=== PATIENT | male | born 2005 | race Caucasian/White ===

== ENCOUNTER 2023-10-13 16:53 | Emergency (ER) | payer BC, SELFPAY ==
[2023-10-13 16:58] VITALS: BP 144/84; PULSE 63; RESP 18; TEMP 36.6; O2SAT 100
--- NOTE | 2023-10-13 17:29 | CRLHL7_ITS ---
For Patients: As a result of the Century Cures Act, medical imaging exams and procedure reports are released immediately into your electronic medical record. You may view this report before your referring provider. If you have questions, please contact your health care provider. INDICATIONS: Chest pain. Cough. TECHNIQUE: Chest 2 view. COMPARISON: None FINDINGS: No pneumothorax or pleural effusion. Lungs are clear. Cardiac and mediastinal contours are within normal limits. Upper abdomen and osseous structures as imaged show no acute abnormality. IMPRESSION: No evidence of acute cardiopulmonary disease. Dictated by Allen Reis MD @ 10/13/2023 7:12:38 PM (Electronically Signed)
--- NOTE | 2023-10-13 17:30 | ED_ITS ---
HPI - General Adult General Date Seen: 10/13/23 Chief complaint: Chest Pain Stated complaint: Chest pain 2 months Time Seen by Provider: 10/13/23 17:10 History of Present Illness HPI narrative: pleasant, generally health 18 yo M presents to ER with girlfriend today for evaluation of chest pain. Has been having intermittent left sided chest pain for about two months, but becoming more frequent for the past 2 weeks. Located on left anterior chest, about 2 inches inferior to his nipple. feels like a pinching. comes and goes several times an hour and lasts 4-5 seconds per episode. no other symptoms occur with the chest pain. No nausea, no palpitations, no SOB, no dizziness. no trigger for the episodes of pain. no relationship to exertion, postion, movement. No radiation to back, arm, abdomen, neck, jaw. No radiation. No N/V. he has had a cough for the past several days, with some runny nose and some sputum. no known fevers. Vapes but does not smoke. denies drugs or EtOH. No h/o heart or lung disease. No asthma. No known family history. No swelling of his legs or arms. No recent travel, surgery, immobilization. No medications. No allergies. Related Data Home Medications Medication Instructions Recorded Confirmed No Known Home Medications 10/13/23 10/13/23 Allergies Allergy/AdvReac Type Severity Reaction Status Date / Time No Known Drug Allergies Allergy Verified 10/13/23 17:02 [facility] Social History Smoking Status: Never smoker Do you use any of these nicotine containing products: None Second hand tobacco smoke exposure: No How often do you have a drink containing alcohol: never AUDIT-C Alcohol total score: 0 Non-prescribed substance use: denies use service: No Exam Narrative: Exam Narrative: Constitutional: Appears well-developed and well-nourished. Alert. Conversant. Non toxic. HENT: Head: Atraumatic. Nose: Nose normal. Mouth/Throat: Oral mucosa is clear and moist. no trismus. Pharynx normal. Tonsils symmetric. No tonsillar enlargement, erythema, or exudate. Eyes: Conjunctivae normal. EOM normal. Pupils equal, round, and reactive to light. No scleral icterus. Neck: Normal range of motion. Neck supple. No tracheal deviation present. no JVD Cardiovascular: Normal rate, regular rhythm. No gallop. No friction rub. No murmur heard. Symmetric radial and PT and DPartery pulses Pulmonary/Chest: Effort normal. No stridor. No respiratory distress. No wheezes. No rales. No rhonchi . does have mild discomfort with palpation on the left anterior lower chest where his pain is but that really does not reproduce his pain. No rash.. Abdominal: Soft. Bowel sounds normal. No distension. No mass. No tenderness. No rebound. No guarding. Musculoskeletal: RUE: Normal range of motion. No tenderness. No deformity LUE: Normal range of motion. No tenderness. No deformity RLE: Normal range of motion. No edema. No tenderness. No deformity LLE: Normal range of motion. No edema. No tenderness. No deformity Neurological: Alert and oriented to person, place, and time. Normal strength. CN II-VII intact. No sensory deficit. GCS eye subscore is 4. GCS verbal subscore is 5. GCS motor subscore is 6. Normal coordination Skin: Skin is warm and dry. No rash noted. No pallor. Normal capillary refill. Psychiatric: Normal mood. Normal affect. Const: Vital Signs, click to edit/add: Vital Signs - 24 hr 10/13/23 16:58 Temperature 97.8 F Pulse Rate [Pulse Oximeter] 63 Respiratory Rate 18 Blood Pressure [Le ft Upper Arm] 144/84 H Pulse Oximetry 100 Oxygen Delivery Me thod Room Air Course Course ED Course: recheck- had 1 brief episode of pain right after he was placed on a equipment monitor phototypesetting but no pain since then. He is now laying in bed and he is comfortable. I reviewed his monitor strip all the way back from when it was 1st place. They do not see any ectopy, PVCs, arrhythmia. He did have a little bit of artifact in the 1st few seconds after they placed a monitor. He is having sinus rhythm with sinus arrhythmia. No PACs or PVCs. Vital Signs Vital signs: Initial Vital Signs Temperature 97.8 F 10/13/23 16:58 Temperature Source Temporal Artery Scan 10/13/23 16:58 Pulse Rate 63 10/13/23 16:58 Pulse Rhythm Regular 10/13/23 16:58 Respiratory Rate 18 10/13/23 16:58 Blood Pressure 144/84 H 10/13/23 16:58 Blood Pressure Mean 104 10/13/23 16:58 Blood Pressure Position Sitting 10/13/23 16:58 Pulse Oximetry 100 10/13/23 16:58 Oxygen Delivery Method Room Air 10/13/23 16:58 Vital Signs Temperature 97.8 F 10/13/23 16:58 Pulse Rate 63 10/13/23 16:58 Respiratory Rate 18 10/13/23 16:58 Blood Pressure 144/84 H 10/13/23 16:58 Pulse Oximetry 100 10/13/23 16:58 Oxygen Delivery Method Room Air 10/13/23 16:58 Temperature 97.8 F 10/13/23 16:58 Pulse Rate 63 10/13/23 16:58 Respiratory Rate 18 10/13/23 16:58 Blood Pressure 144/84 H 10/13/23 16:58 Pulse Oximetry 100 10/13/23 16:58 Oxygen Delivery Method Room Air 10/13/23 16:58 Medical Decision Making MDM Narrative Medical decision making narrative: This patient presents to the ER today for evaluation of Intermittent brief episodes of left anterior chest pain. Differential was broad. No evidence of palpitations, syncope or other cardiac dysrhythmia, on careful inspection of his EKG and equipment monitor phototypesetting while here in the ER. He does have sinus arrhythmia. We considered possible ACS, however workup with EKG and troponin is negative. HEART score is Low risk. Given time since onset of symptoms, I do not think the patient needs to be admitted for further sets of enzymes. EKG shows no evidence for pericarditis. Clinical presentation not suggestive of myocarditis. Chest x-ray shows no evidence for pneumonia, pneumothorax, pulmonary edema, pleural effusion, rib fracture, cardiomegaly. Mediastinum is normal on the x-ray. The patient has no ripping or tearing pain through to the back and has symmetric pulses on exam, no other acute neuro findings so I doubt aortic dissection. Risk of radiation and contrast exposure would outweigh the benefit of CT angiogram. We considered PE for this patient. overall low risk. Screening D-dimer is normal. Risk of radiation from CT tPA would outweigh the benefit No wheezing or bronchospasm to suggest COPD/asthma. No signs of Definitive chest wall injury,chest wall cellulitis, shingles, injury. no bruising. No visible rib fracture. No known injury. differential would still include possible esophageal spasm or reflux. Differential would also include anxiety. Possible musculoskeletal pain. With reasonable clinical confidence, I think the patient is safe for outpatient follow up. Discussed return precautions. Questions answered. Patient voices comfort with the plan. Lab Data Labs: Lab Results 10/13/23 10/13/23 Range/Units 17:36 17:41 WBC 5.56 (4.50-11.00) K/uL RBC 5.23 (4.30-5.90) m/uL Hgb 15.6 (13.5-17.5) gm/dL Hct 44.0 (37.0-53.0) % MCV 84 (80-100) fL MCH 30 (26-34) pg MCHC 36 (32-36) gm/dL RDW Coeff of Thuy 11.9 (11.5-15.5) % Plt Count 205 (140-440) K/uL Neut % (Auto) 36.9 L (42.0-72.0) % Lymph % (Auto) 47.5 H (20-44) % [place] % (Auto) 9.5 (0.0-11.0) % Eos % (Auto) 5.4 (0.0-7.0) % Baso % (Auto) 0.7 (0.0-3.0) % Neut # (Auto) 2.10 (1.7-7.0) K/uL Lymph # (Auto) 2.60 (0.90-2.90) K/uL [place] # (Auto) 0.50 (0.00-0.90) K/UL Eos # (Auto) 0.30 (0.00-0.50) K/uL Baso # (Auto) 0.04 (0.00-0.30) K/uL Abs Immat Gran (auto) 0.00 (0.00-0.30) K/uL Imm/Tot Granulo (auto) 0.0 % D-Dimer Quant (PE/DVT) < 0.27 (0.00-0.50) ug/ml Sodium 139 (135-149) mmol/L Potassium 4.0 (3.6-5.1) mmol/L Chloride 100 (96-114) mmol/L Carbon Dioxide 27 (20-32) mmol/L Anion Gap 12 (7-15) mEq/L BUN 13 (5-24) mg/dL Creatinine 0.9 (0.5-1.5) mg/dL Estimated GFR 125 ml/min Glucose 103 (60-115) mg/dL Calcium 9.3 (8.4-10.6) mg/dL Troponin I < 0.01 L (0.01-0.04) ng/mL SARS-CoV-2 (PCR) Negative SARS-CoV-2 (Negative) Influenza Type A (PCR) Negative PCR FLU A (Negative) Influenza Type B (PCR) Negative PCR FLU B (Negative) RSV (PCR) Negative PCR RSV (Negative) Imaging Data Chest x-ray: Attestation: I have reviewed the pertinent imaging results. My impression: normal cardiac silhouette. No cardiomegaly. Normal mediastinum. Clear lung pruitt. No pneumothorax. No pleural effusion. No focal infiltrate. No CHF. By my read. ECG Data Attestation: I personally reviewed and interpreted this ECG as follows: Interpretation: Normal sinus rhythm . rate 63 VA. 138. No delta waves. QRS axis Normal axis. No pathologic Q-waves. ST segment/T wave: No ST segment elevation or depression. QTc: 401 Discharge Plan Discharge Clinical Impression: Chest pain Patient Disposition: Home, Self-Care Condition: Stable Instructions: Chest Pain (DC) Additional Instructions: As we discussed, so far the workup for your chest pain is very reassuring. However we need to monitor your symptoms and if they are becoming worse, please see your doctor or come back to the ER right away for a recheck. Even if you get better, please recheck with your regular doctor within 1-2 weeks for a checkup Prescriptions: No Action No Known Home Medications Follow Up/Referrals: Provider,Not a Local [Primary Care Provider] - Stand Alone Forms: [employer] Info Instructions
[2023-10-13 17:50] LABS: Basophils Absolute Auto 0.04 K/uL (0.00-0.30); Basophils Percent Auto 0.7 % (0.0-3.0); Eosinophils Percent Auto 5.4 % (0.0-7.0); Hemoglobin* 15.6 gm/dL (13.5-17.5); Lymphocytes Percent Auto 47.5 % (20-44); Mean Corpuscular HGB Conc 36 gm/dL (32-36); Mean Corpuscular Hemoglobin 30 pg (26-34); Mean Corpuscular Volume 84 fL (80-100); Monocytes Percent Auto 9.5 % (0.0-11.0); Neutrophils Percent Auto 36.9 % (42.0-72.0); Platelet Count* 205 K/uL (140-440); RDW Coefficient of Variation % 11.9 % (11.5-15.5); Red Blood Count 5.23 m/uL (4.30-5.90); White Blood Count* 5.56 K/uL (4.50-11.00)
[2023-10-13 17:56] LABS: Slide Review Reflex No
[2023-10-13 18:02] LABS: Chloride* 100 mmol/L (96-114); Sodium* 139 mmol/L (135-149)
[2023-10-13 18:05] LABS: Anion Gap 12 mEq/L (7-15); Carbon Dioxide* 27 mmol/L (20-32); Creatinine* 0.9 mg/dL (0.5-1.5); Estimated Glomerular Filt Rate 125 ml/min
[2023-10-13 18:06] LABS: Blood Urea Nitrogen* 13 mg/dL (5-24); Calcium* 9.3 mg/dL (8.4-10.6); Glucose* 103 mg/dL (60-115)
[2023-10-13 18:20] LABS: Troponin I* < 0.01 ng/mL (0.01-0.04)
[2023-10-13 18:27] LABS: PCR FLU A Negative PCR FLU A (Negative); PCR FLU B Negative PCR FLU B (Negative); PCR RSV Negative PCR RSV (Negative); SARS PCR* Negative SARS-CoV-2 (Negative)
[2023-10-13 18:33] LABS: D Dimer Quantitative* < 0.27 ug/ml (0.00-0.50)
== END 2023-10-13 19:03 | disposition home or self-care (01) ==
PROVIDERS: Emergency Provider Emergency Medicine
DX: R07.9 Chest pain, unspecified (principal)
CPT/HCPCS: 36415; 71046; 80048; 84484; 85025; 85379; 87631; 99283; 99284